=== PATIENT | male | born 1950 | race Caucasian/White ===

== ENCOUNTER → 2019-02-13 | Day surgery (SDC) | payer BC ==
[~2019-02-13] MED LIST: Acetaminophen TAB* 325 MG PO PRN; Buffered Lidocaine 1% SYRIN* 1 ML/SYRINGE INTRADERM ONE; Bupivacaine 0.25% W/EPI* 10 ML SDV ONE; Dexamethasone IV* 4 MG/ML 1 ML (4 MG) IV SLOW PU ONE; Dexamethasone IV* 4 MG/ML 1 ML (4 MG) ONE; DiMENhydriNATE IV* 50 MG/ML VIAL IV PUSH PRN; EPHEDrine (Pressors)* 50 MG/ML VIAL ONE; Famotidine IV* 10 MG/ML 2 ML (20 mg) IV ONE; Famotidine IV* 10 MG/ML 2 ML (20 mg) ONE; HYDROcodone/ACETAMIN 5-325 MG* 1 TAB PO PRN; Ketorolac INJ* 30 MG/ML 1 ML VIAL ONE; Lactated Ringers 1000 ML Bag* 1,000 ML IV SCH; Lidocaine 2% PF * 5 ML VIAL ONE; Methylene Blue 0.5 %* 50 MG/10 ML AMP IV ONE; Midazolam* 1 MG/ML 2 ML VIAL (2 MG) ONE; Naloxone* 0.4 MG/ML 1 ML VIAL IV PRN; Ondansetron INJ* 2 MG/ML VIAL ONE; Propofol* 10 MG/ML 20 ML BTL ONE; Succinylcholine* 20 MG/ML 10 ML VIAL ONE; ceFAZolin 2 GM PREMIX in ORs 2 GM/50 ML BAG ONE; fentaNYL* 50 MCG/ML 2 ML VIAL (100 MCG VIAL) IV PRN; fentaNYL* 50 MCG/ML 2 ML VIAL (100 MCG VIAL) ONE; oxyCODONE TAB* 5 MG TAB PO PRN
[2019-02-13 11:10] VITALS: BP 131/86
--- NOTE | 2019-02-14 00:23 | OP ---
CC: Alexx Lai MD * DATE OF OPERATION: 02/13/19 - [facility] DATE OF : 50 SURGEON: Dr. Arce. SOFTWARE SALES: Adamaris Bella NP. ANESTHESIOLOGIST: Melanie García MD. ANESTHESIA: General endotracheal. PRE-OP DIAGNOSIS: Left inguinal hernia. POST-OP DIAGNOSES: Left inguinal hernia and left femoral hernia. OPERATIVE PROCEDURE: Laparoscopic repair of left inguinal hernia with reduction repair of the left femoral hernia with mesh. ESTIMATED BLOOD LOSS: Less than 10 mL. SPECIMEN: None. DRAINS: None. COMPLICATIONS: None. COUNTS: The instrument, needle, and sponge counts were correct. DESCRIPTION OF PROCEDURE: The patient was brought to the operating room and placed on the table supine. Sequential compression devices were placed on both lower extremities. General anesthesia was administered. Tello catheter was placed. Appropriate intravenous antibiotics were administered. He was prepped and draped in usual sterile fashion. Time-out was performed. Local anesthetic was infiltrated into the skin and soft tissue prior to making each incision. A curvilinear infraumbilical incision was created. Subcutaneous tissues were divided and the anterior rectus fascia was incised transversely to the left of midline, and the underlying rectus muscle was retracted laterally, and preperitoneal balloon dissector was positioned down to the level of pubic symphysis. This was insufflated under direct visualization. This was removed and replaced with a 12-mm blunt port and then carbon dioxide was insufflated to a pressure of 10 mmHg. Under direct visualization, two 5-mm trocars were placed in the lower midline. Inspection revealed evidence of left femoral hernia. The dissection proceeded from the midline laterally identifying the inferior epigastric vessels and maintaining them anteriorly. The patient was noted to also have an indirect inguinal hernia and the sac was reduced, dissected and the cord dissected from it. The dissection proceeded laterally to the anterior superior iliac spine. The attention was again turned to the femoral hernia and during attempts to reduce this, the peritoneum was torn. Ultimately, the visualization required the camera port to be repositioned into the peritoneal cavity by removing the port, incising the posterior rectus sheath and then placing the trocar within the peritoneal cavity. Then, using the camera within the peritoneal cavity and utilizing the instruments through 5- mm port, using hand over hand technique, I was able to completely reduce the contents of the left femoral hernia, which contained only fat. Once this was completely reduced, the preperitoneal space was further enlarged in order to accommodate a [employer] ProGrip left side anatomic shaped mesh. This was placed into the preperitoneal space and it was positioned to cover the direct, indirect, and femoral spaces with overlap to the midline. After completing this , the camera port was then repositioned into the preperitoneal space and then the rent in the peritoneum was run close using a V-Loc 3-0 Maxon suture. After completing this, the camera port was then returned to the peritoneal cavity and inspection revealed good closure of the peritoneum with no exposed mesh. Subsequently, all the ports were removed under direct visualization. Carbon dioxide was released. The infraumbilical port site was closed in 2 layers with 0-Vicryl to approximate the posterior anterior rectus fascia separately. Skin incisions were all closed with 4- 0 Monocryl in subcuticular fashion and Steri- Strips, dressings were applied. The patient tolerated this procedure well. He was then extubated uneventfully. He transferred to Recovery in a stable condition. [id number]/[facility] #: [id number] [facility] HOSPITALFransisca
== END | disposition home or self-care (01) ==
LOC: OR 05:50
PROVIDERS: ATTEND Surgery
DX: K40.90 Unilateral inguinal hernia, without obstruction or gangrene, not specified as recurrent (principal); K41.90 Unilateral femoral hernia, without obstruction or gangrene, not specified as recurrent; I10 Essential (primary) hypertension; I48.91 Unspecified atrial fibrillation; I47.1 Supraventricular tachycardia; I71.4 Abdominal aortic aneurysm, without rupture
CPT/HCPCS: C1781; J0330; J0690; J1100; J1885; J2250; J2405; J2704; J3010

== ENCOUNTER 2022-06-29 05:49 | Observation (INO) ==
[2022-06-29] MEDS ORDERED: Lactated Ringers 1000 ml BAG 1,000 ML IV SCH ×2 (06:00→08:00)
[2022-06-29] MEDS ORDERED: Buffered Lidocaine 1% SYRIN 1 ml INTRADERM ONE (06:00)
[2022-06-29] MEDS ORDERED: ceFAZolin 2 GM in NS PREMIX 2 GM/100 ML BAG IVPB ONE (06:05)
[2022-06-29 06:34] LABS: INR 1.03 (0.88-1.18)
[2022-06-29] MEDS ORDERED: Midazolam 2 mg/2 ml VIAL 1 mg/ml 2 ml VIAL (2 mg) ONE (07:16)
[2022-06-29] MEDS ORDERED: Lidocaine 2% PF 5 ML VIAL ONE (07:17)
[2022-06-29] MEDS ORDERED: Phenylephrine IV 10 MG/ML 1 ml VIAL ONE (07:47)
[2022-06-29] MEDS ORDERED: Magnesium Hydroxide LIQ 30 ML UDC PO PRN (07:55)
[2022-06-29] MEDS ORDERED: Ondansetron 4 mg VIAL 2 MG/ML 2 ml VIAL IV PRN (07:55)
[2022-06-29] MEDS ORDERED: Lactulose 30 ml UDC PO PRN (07:55)
[2022-06-29] MEDS ORDERED: Morphine 2 MG/ML SYRINGE IV PRN (07:55)
[2022-06-29] MEDS ORDERED: Ondansetron ODT 4 mg TAB 4 MG TAB PO PRN (07:55)
[2022-06-29] MEDS ORDERED: Ondansetron 4 mg VIAL 2 MG/ML 2 ml VIAL ONE (08:04)
[2022-06-29] MEDS ORDERED: Dexamethasone IV 4 MG/ML VIAL 1 ml VIAL ONE (08:04)
[2022-06-29] MEDS ORDERED: Propofol 10 MG/ML 20 ML BTL ONE (09:08)
[2022-06-29] MEDS ORDERED: Naloxone 0.4 mg VIAL 0.4 mg/ml 1 ml VIAL IV PRN (09:37)
[2022-06-29] MEDS ORDERED: HYDROmorphone 1 MG/1 ML SYRINGE ONE (09:59)
[2022-06-29] MEDS: HYDROmorphone 1 MG/1 ML SYRINGE IV PRN ×2 (10:01→10:11)
[2022-06-29] MEDS: Magnesium Hydroxide LIQ 30 ML UDC PO SCH ×2 (12:27→12:38)
[2022-06-29] MEDS: Vitamin THERAPEUTIC TAB PO SCH ×2 (12:27→12:38)
[2022-06-29] MEDS ORDERED: ceFAZolin 1 GM ADVAN 1 GM in NS 0.9% 50 ML 50 ML IVPB SCH (16:00)
[2022-06-29 16:38] VITALS: BP 119/74
== END 2022-06-29 18:30 | disposition home or self-care (01) ==
LOC: AA 05:49 → INTOOBSV 05:49 → SSU 10:33
PROVIDERS: ADMIT Orthopaedic Surgery Adult Reconstructive Orthopaedic Surgery; ATTEND Orthopaedic Surgery Adult Reconstructive Orthopaedic Surgery